=== PATIENT | male | born 1935 | race Caucasian/White ===

== ENCOUNTER 2021-06-04 14:43 | Inpatient (IN) | payer MEDICARE ==
[~2021-06-04] VITALS: Ht 182.9 cm; Wt 91.2 kg
[2021-06-04] MEDS ORDERED: ONDANSETRON HCL INJ 2MG/ML 2ML 2 MG/ML VIAL IV PRN (15:30)
[2021-06-04] MEDS ORDERED: ASPIRIN 81 MG CHEW TAB PO ONE (15:30)
[2021-06-04] MEDS ORDERED: SODIUM CHLORIDE FLUSH 10 ML SYR INJ PRN (15:30)
[2021-06-04] MEDS ORDERED: ASPIRIN 325 MG TAB PO ONE (15:45)
[2021-06-04] MEDS ORDERED: ASPIRIN 325 MG TAB ONE (16:12)
[2021-06-04 17:05] VITALS: BP 155/71
[2021-06-04 17:51] VITALS: BP 155/71
[2021-06-04 18:00] LABS: CREATINE KINASE 29 IU/L (30-200)
[2021-06-04 18:11] VITALS: BP 155/71
[2021-06-04] MEDS ORDERED: ACETAMINOPHEN 325 MG TAB PO PRN (18:15)
[2021-06-04 18:37] VITALS: BP 155/71
[2021-06-04 20:00] VITALS: BP 162/83
[2021-06-04] MEDS ORDERED: SYNTHROID88 MCG PO (20:29)
[2021-06-04] MEDS ORDERED: LISINOPRIL10 MG PO (20:30)
[2021-06-04] MEDS ORDERED: GLIMEPIRIDE2 MG PO (20:31)
[2021-06-04] MEDS ORDERED: FAMOTIDINE40 MG PO (20:37)
[2021-06-04] MEDS ORDERED: METFORMIN HCL500 MG PO (20:38)
[2021-06-04] MEDS ORDERED: CILOSTAZOL50 MG PO (20:38)
[2021-06-04] MEDS ORDERED: SIMVASTATIN40 MG PO (20:38)
[2021-06-04] MEDS ORDERED: LISINOPRIL 10 MG TAB PO SCH (22:15)
[2021-06-05] VITALS: BP 154/78
[2021-06-05 04:00] VITALS: BP 151/77
[2021-06-05 07:12] LABS: BASOPHILS % 0.4 % (0.0-1.0); EOSINOPHILS # (AUTO) 0.3 (0.0-0.4); EOSINOPHILS % 3.5 % (0.0-6.0); HEMATOCRIT 37.5 % (38.2-49.6); HEMOGLOBIN 12.2 g/dL (14.0-18.0); LYMPHOCYTES # (AUTO) 2.3 (1.0-3.2); LYMPHOCYTES % 28.4 % (18.0-39.1); MEAN CORPUSCULAR HEMOGLOBIN 30.3 pg (28-32); MEAN CORPUSCULAR HGB CONC 32.5 g/dL (31-35); MEAN CORPUSCULAR VOLUME 93.3 fL (81-99); MONOCYTES # (AUTO) 0.8 (0.2-0.8); MONOCYTES % 9.7 % (4.4-11.3); NEUTROPHILS # (AUTO) 4.6 (2.1-6.9); NEUTROPHILS % 57.8 % (38.7-80.0); PLATELET COUNT 234 x10e3/uL (140-360); RED BLOOD COUNT 4.02 x10e6/uL (4.3-5.7); RED CELL DISTRIBUTION WIDTH 12.1 % (11.7-14.4)
[2021-06-05 07:39] LABS: INR 0.97; PROTHROMBIN TIME 13.6 seconds (11.9-14.5)
[2021-06-05 07:39] LABS: ALBUMIN 3.5 g/dL (3.5-5.0); ALBUMIN/GLOBULIN RATIO 1.2 (0.8-2.0); ANION GAP 11.8 mmol/L (8-16); CALCIUM 9.3 mg/dL (8.4-10.2); CHOL/HDL RATIO 2.9 (3.9-4.7); CREATININE, SERUM 0.83 mg/dL (0.72-1.25); MAGNESIUM 1.6 MG/DL (1.3-2.1); PHOSPHORUS 3.9 MG/DL (2.3-4.7); POTASSIUM 3.8 mmol/L (3.5-5.1)
[2021-06-05 07:40] LABS: PARTIAL THROMBOPLASTIN TIME 31.1 seconds (23.8-35.5)
[2021-06-05 08:09] VITALS: BP 166/86
[2021-06-05 08:45] VITALS: BP 166/86
[2021-06-05] MEDS ORDERED: ASPIRIN 325 MG TAB PO SCH (09:00)
[2021-06-05] MEDS ORDERED: CILOSTAZOL 100 MG TAB PO SCH (09:00)
[2021-06-05] MEDS ORDERED: METFORMIN HCL 500 MG TAB PO SCH (09:00)
[2021-06-05 11:56] VITALS: BP 143/72
[2021-06-05] MEDS ORDERED: ONDANSETRON HCL 4 MG ORAL DISINTEGRATING TAB PO PRN (14:15)
[2021-06-05] MEDS ORDERED: ASPIRIN325 MG PO (16:58)
[2021-06-05 17:14] VITALS: BP 136/77
[2021-06-05] MEDS ORDERED: SIMVASTATIN 40 MG TAB PO SCH (21:00)
[2021-06-05] MEDS ORDERED: FAMOTIDINE 20 MG TAB PO SCH (21:00)
[2021-06-06] MEDS ORDERED: LEVOTHYROXINE SODIUM 88 MCG TAB PO SCH (06:30)
== END 2021-06-05 18:04 | disposition home or self-care (01) | DRG 69 ==
LOC: FSED 15:11 → ERHOLD 15:29 → MED/SURG 17:02
PROVIDERS: ADMIT Internal Medicine; ATTEND Internal Medicine
DX: G45.9 Transient cerebral ischemic attack, unspecified (principal); E11.9 Type 2 diabetes mellitus without complications; E78.5 Hyperlipidemia, unspecified; I10 Essential (primary) hypertension; Z20.822 Contact with and (suspected) exposure to COVID-19; Z79.4 Long term (current) use of insulin
CPT/HCPCS: 36415; 70450; 70551; 71046; 80053; 80061; 82550; 82553; 82948; 83735; 84100; 84484; 85025; 85610; 85730; 93005; 93306; 99284; U0002

== ENCOUNTER 2024-08-20 17:47 | Emergency (ER) | payer MEDICARE ==
[~2024-08-20] VITALS: Ht 182.9 cm; Wt 93.6 kg
[~2024-08-20 17:47] MED LIST: ASPIRIN325 MG PO; CILOSTAZOL50 MG PO; DIPHENHYDRAMINE25 M2 PO; FAMOTIDINE40 MG PO; GLIMEPIRIDE2 MG PO; LISINOPRIL10 MG PO; METFORMIN HCL500 MG PO; SIMVASTATIN40 MG PO; SYNTHROID88 MCG PO; TAMIFLU75 MG PO; TYLENOL325 MG PO; XOFLUZA80 MG PO
[2024-08-20] MEDS ORDERED: PROTONIX20 MG PO (18:07)
[2024-08-20 18:39] VITALS: TEMP 98.2
[2024-08-20 19:44] VITALS: PULSE 86; RESP 20
[2024-08-20 19:55] VITALS: BP 157/79; PULSE 92; RESP 18; TEMP 98; O2SAT 96
== END 2024-08-20 19:55 | disposition other institution (70) ==
LOC: FSED 17:51
DX: R42 Dizziness and giddiness (principal); G45.9 Transient cerebral ischemic attack, unspecified; R53.1 Weakness; R51.9 Headache, unspecified; I10 Essential (primary) hypertension; E11.9 Type 2 diabetes mellitus without complications; E03.9 Hypothyroidism, unspecified; E78.5 Hyperlipidemia, unspecified; K21.9 Gastro-esophageal reflux disease without esophagitis; R94.31 Abnormal electrocardiogram [ECG] [EKG]
CPT/HCPCS: 70450; 80053; 84484; 85025; 85610; 93005; 94760; 99284

== ENCOUNTER 2025-02-10 16:15 | Emergency (ER) | payer MEDICARE ==
[~2025-02-10] VITALS: Ht 182.9 cm; Wt 93.4 kg
[~2025-02-10 16:15] MED LIST changes: +PROTONIX20 MG PO
[2025-02-10] MEDS: SODIUM CHLORIDE 0.9% 1000ML 1,000 ML IV STA (17:26)
[2025-02-10 17:51] LABS: INR 0.91
[2025-02-10 18:09] LABS: BASOPHILS % 0.5 % (0.0-1.0); EOSINOPHILS % 3.4 % (0.0-6.0); LYMPHOCYTES % 22.4 % (18.0-39.1); MONOCYTES % 11.3 % (4.4-11.3); NEUTROPHILS % 61.6 % (38.7-80.0); RED CELL DISTRIBUTION WIDTH 12.4 % (11.7-14.4)
[2025-02-10 18:10] LABS: EST GLOMERULAR FILTRATION RATE 81.0 ML/MIN (>=60)
[2025-02-10] MEDS: MECLIZINE HCL 12.5 MG TAB PO ONE (18:42)
[2025-02-10 19:41] LABS: LEUKOCYTE ESTERASE ,URINE NEGATIVE (NEGATIVE); PROTEIN,URINE DIPSTICK NEGATIVE (NEGATIVE); URINE UROBILINOGEN 0.2 mg/dL (0.2 - 1)
[2025-02-10 20:00] LABS: WBC,URINE (MAN) 0-5 /HPF (0-5)
[2025-02-10 20:02] LABS: EPITHELIAL CELLS,URINE RARE /LPF
[2025-02-10 21:00] VITALS: TEMP 98.2
[2025-02-10 23:00] VITALS: PULSE 94; RESP 20
[2025-02-10 23:28] VITALS: BP 143/88; O2SAT 97
== END 2025-02-10 23:20 | disposition other institution (70) ==
LOC: ER 18:30
DX: R42 Dizziness and giddiness (principal); I10 Essential (primary) hypertension; E11.9 Type 2 diabetes mellitus without complications; E78.5 Hyperlipidemia, unspecified; I25.10 Atherosclerotic heart disease of native coronary artery without angina pectoris; K21.9 Gastro-esophageal reflux disease without esophagitis; R94.31 Abnormal electrocardiogram [ECG] [EKG]; Z86.73 Personal history of transient ischemic attack (TIA), and cerebral infarction without residual deficits; Z85.828 Personal history of other malignant neoplasm of skin; Z96.652 Presence of left artificial knee joint
CPT/HCPCS: 36415; 70450; 70496; 70498; 71045; 80053; 81001; 83735; 84484; 85025; 85610; 85730; 93005; 99284; J7030; J8597